=== PATIENT | male | born 1965 | race Caucasian/White ===

== ENCOUNTER 2019-08-31 10:56 | Emergency (ER) | payer BC, SELFPAY ==
[2019-08-31 10:57] VITALS: BP 188/93; PULSE 80; RESP 16; TEMP 36.3; O2SAT 95; BMI 41.8
--- NOTE | 2019-08-31 11:08 | ED.VISSUMM ---
- ER Visit Summary Date of Service: 08/31/19 Chief Complaint: Right ear foreign body History of Present Illness: The patient is a 54 M who lives in [place] and will be returning tomorrow. He reports that the plastic tip of his hearing aid broke off in his ear today. He denies any pain. Review of systems: General: No fever, chills, cold sweats. Cardiovascular: No chest pain, palpitations. Respiratory: No cough, shortness of breath, dyspnea on exertion. Gastrointestinal: No abdominal pain, nausea, vomiting, diarrhea, melena, or hematochezia. Genitourinary: No dysuria, frequency, hematuria. Skin: No rash. Neuro: No headache, numbness, weakness. Physical Examination: Vitals: Stable. Afebrile. General: Well-nourished and well-developed. Head: Normocephalic atraumatic. HEENT: White plastic foreign body in the right external auditory canal. No bleeding. Neck: Supple, no lymphadenopathy. No JVD. Nontender. Cardiovascular: Regular rate and rhythm. No murmurs. Respiratory: No respiratory distress. Clear to auscultation bilaterally. Abdominal: Soft, nontender, nondistended, normal bowel sounds. No guarding, rebound, or peritoneal signs. Back: Nontender. Extremities: Nontender, no edema. Skin: Normal color, no rash. Neurologic: Alert and oriented ?3. Cranial nerves II through XII are intact. Normal strength and sensation. Psych: Normal affect. Emergency Department Course and Treatment: The foreign body was removed with alligator forceps. The patient tolerated it well. Treatment Plan: Patient will be discharged with instructions to follow-up with his primary care physician and/or ENT in 3 to 5 days if not improving. Return to the emergency department for any worsening symptoms. Disposition: To home in improved and stable condition. Impression: 1 1. Foreign body right ear, removed. This note was generated with [employer] dictation software. It may contain incorrect words, spelling, and punctuation that were not noted in review of the chart prior to signing ED Disposition - Plan for ED Patient: Instructions: ED EAR CANAL Foreign Body Referrals: Doctor,Your [STAFF PHYSICIAN] - 3-5 Days if not improving
== END 2019-08-31 11:42 | disposition home or self-care (01) ==
LOC: ED 11:39
PROVIDERS: Emergency Provider Emergency Medicine
DX: T16.1XXA Foreign body in right ear, initial encounter (principal); X58.XXXA Exposure to other specified factors, initial encounter; Y93.9 Activity, unspecified; Y92.9 Unspecified place or not applicable; I10 Essential (primary) hypertension; E11.9 Type 2 diabetes mellitus without complications; Z79.4 Long term (current) use of insulin; Z79.899 Other long term (current) drug therapy
CPT/HCPCS: 69200; 99282